=== PATIENT | female | born 1990 | race Caucasian/White ===

== ENCOUNTER → 2025-01-14 10:53 | Outpatient (REF) | payer OTHER, SELFPAY | LOC: PNTC 10:53 | PROVIDERS: ATTENDING PHYSICIAN Obstetrics & Gynecology | DX: O36.8120 Decreased fetal movements, second trimester, not applicable or unspecified (principal) | CPT/HCPCS: 59025; 76815 ==

== ENCOUNTER 2025-01-15 03:56 | Inpatient (IN) | payer OTHER, SELFPAY ==
[2025-01-15 04:04] VITALS: BMI 24.8
[2025-01-15] MEDS: LR 1000 IV ×2 (04:35→06:26)
[2025-01-15 04:52] VITALS: BP 123/63
[2025-01-15 04:52] LABS: Hematocrit 35.0 % (37.0-47.0); Hemoglobin 12.0 g/dL (12.0-16.0); Mean Corp Hgb Conc. 34.3 g/dL (33.0-37.0); Mean Corpuscular Volume 85.8 fL (81.0-99.0); Nucleated Red Blood Cells % 0 %; Platelet Count 161 10^3/uL (130-400); Red Cell Dist. Width 13.2 % (11.5-14.5)
[2025-01-15] MEDS: FENTANYL/BUPIVACAINE 100 EPIDURAL (05:15)
[2025-01-15] MEDS: SUBLIMAZE 100 MCG EPIDURAL (05:15)
[2025-01-15] MEDS: PITOCIN 30 UNITS/NSS 500 ML IV (11:25)
[2025-01-15] MEDS: MOTRIN 600 MG PO (19:22)
[2025-01-15] MEDS: COLACE 100 MG PO (19:22)
[2025-01-16] MEDS: MOTRIN 600 MG PO ×2 (01:37→08:04)
[2025-01-16] MEDS: TYLENOL 650 MG PO (01:38)
[2025-01-16 06:14] LABS: Hematocrit 34.6 % (37.0-47.0); Hemoglobin 11.7 g/dL (12.0-16.0)
[2025-01-16] MEDS: COLACE 100 MG PO (08:03)
[2025-01-16] MEDS: PRENATAL PLUS 1 TABLET PO (08:03)
== END 2025-01-16 15:57 | disposition home or self-care (01) | DRG 807 ==
LOC: LDRP 03:56
PROVIDERS: Obstetrics & Gynecology; ADMITTING PHYSICIAN Student in an Organized Health Care Education/Training Program; FAMILY PHYSICIAN Family Medicine
PROC: 10E0XZZ Delivery of Products of Conception, External Approach (ICD-10-PCS; 2025-01-15)
DX: O80 Encounter for full-term uncomplicated delivery (principal); Z37.0 Single live birth; Z3A.39 39 weeks gestation of pregnancy
CPT/HCPCS: 36415; 85014; 85018; 85025; 86780; 86850; 86900; 86901